=== PATIENT | female | born 1975 | race Hispanic/Latino ===

== ENCOUNTER 2017-10-12 13:25 | Observation (INO) | payer SELFPAY ==
[~2017-10-12] VITALS: Ht 157.5 cm; Wt 61.7 kg
[2017-10-12] MEDS: NALOXONE HCL 2MG/2 ML SYRINGE IV PRN ×3 (13:30→14:00)
[2017-10-12] MEDS: FLUMAZENIL 0.5MG/ 5ML VIAL IV PRN ×4 (13:30→13:55)
[2017-10-12 14:24] LABS: ACETAMINOPHEN < 3 ug/mL (10-30); SALICYLATE < 5.0 mg/dL (0-30)
[2017-10-12 14:51] LABS: PREGNANCY TEST, URINE NEGATIVE (NEGATIVE)
[2017-10-12 14:52] LABS: CLARITY,URINE SL CLOUDY (CLEAR); COLOR,URINE YELLOW (YELLOW); KETONES,URINE 1+ (NEGATIVE); LEUKOCYTE ESTERASE ,URINE NEGATIVE (NEGATIVE); NITRITE,URINE NEGATIVE (NEGATIVE); PROTEIN,URINE DIPSTICK NEGATIVE (NEGATIVE)
[2017-10-12 14:53] LABS: AMPHETAMINES SCREEN,URINE NEGATIVE (NEGATIVE); BENZODIAZEPINES SCREEN,URINE POSITIVE (NEGATIVE); BILIRUBIN,URINE NEGATIVE (NEGATIVE); PHENCYCLIDINE SCREEN,URINE NEGATIVE (NEGATIVE); URINE UROBILINOGEN 0.2 mg/dL (0.2 - 1)
[2017-10-12] MEDS ORDERED: SODIUM CHLORIDE 0.9% 1000ML 1,000 ML IV SCH (15:00)
[2017-10-12 15:04] LABS: EPITHELIAL CELLS,URINE RARE /LPF
[2017-10-12 15:47] LABS: ABG HCO3 24 mmol/L (23-28); ABG PCO2 37 mmHg (41-51); ABG PH 7.42 (7.31-7.41); ABG PO2 159 mmHg (80-105)
[2017-10-12 15:47] LABS: BASOPHILS % 0.3 % (0.0-1.0); EOSINOPHILS % 0.3 % (0.0-6.0); HEMATOCRIT 37.8 % (34.2-44.1); HEMOGLOBIN 13.1 g/dL (12.0-16.0); LYMPHOCYTES # (AUTO) 1.4 (1.0-3.2); LYMPHOCYTES % 12.4 % (18.0-39.1); MEAN CORPUSCULAR HGB CONC 34.7 g/dL (31-35); MEAN CORPUSCULAR VOLUME 89.6 fL (81-99); MONOCYTES # (AUTO) 0.6 (0.2-0.8); MONOCYTES % 5.1 % (4.4-11.3); NEUTROPHILS # (AUTO) 9.4 (2.1-6.9); NEUTROPHILS % 81.6 % (38.7-80.0); PLATELET COUNT 255 x10e3/uL (140-360); RED BLOOD COUNT 4.22 x10e6/uL (3.6-5.1)
[2017-10-12 15:59] LABS: INR 1.03; PARTIAL THROMBOPLASTIN TIME 26.4 seconds (23.8-35.5); PROTHROMBIN TIME 12.7 seconds (11.9-14.5)
[2017-10-12] MEDS: SODIUM CHLORIDE 0.9% 1000ML 1,000 ML IV SCH ×2 (16:11→20:16)
[2017-10-12] MEDS ORDERED: ASPIRIN 81 MG CHEW TAB ONE (16:26)
[2017-10-12 17:45] VITALS: BP_SYST 163; BP_DIAS 78; BP_DIAS 82
[2017-10-12 18:16] VITALS: BP 163/82
[2017-10-12 18:45] VITALS: BP 129/99
[2017-10-12 18:50] VITALS: BP 135/84
[2017-10-12 19:35] VITALS: BP 142/92
[2017-10-13] MEDS ORDERED: ACETAMINOPHEN 325 MG TAB PO PRN (00:15)
[2017-10-13 00:26] VITALS: BP 122/69
[2017-10-13 04:00] VITALS: BP 153/85
[2017-10-13 07:23] VITALS: BP 121/64
[2017-10-13] MEDS: SODIUM CHLORIDE 0.9% 1000ML 1,000 ML IV SCH (07:32)
[2017-10-13 08:40] VITALS: BP 121/64
--- NOTE | 2017-10-14 13:00 | Discharge Summary ---
FINAL DIAGNOSES 1. Major depression. 2. Anxiety disorder. 3. Suicide attempt. SUMMARY: A 42-year-old female with depression. The patient is seeing a therapist outside psychologist. The patient underwent a session. She could not afford 9 sessions. Therefore, she stopped going. She took some old benzodiazepine pill and was lethargic when she came into the outpatient ER. The patient was sent here for evaluation. MAT team mobile assessment response team came out to see the patient. They saw the patient. Recommended MD for patient information for outside resources. Patient has no suicidal ideation at this time. That confirmed on conversation with the patient due to cancellation. Patient's close friend is also by her bedside. The patient is from her 9 months ago. He does have 2 grown children already. They are not living with the patient. The patient lives by herself. The patient denied any suicidal/homicidal ideation at this time. The patient has been cleared by the MAT team for discharge from a psychiatric standpoint. Medically, the patient is stable. Discussed with the patient at length. The patient is going home with her friend today. She will discharge home. She again had no intention of hurting herself anymore. She is stable. Patient was discharged home. Recommend the patient to follow up with the MAT team recommendation. She is going home with her friend as she needs friend's support. Job#: [id number]
== END 2017-10-13 12:08 | disposition home or self-care (01) ==
LOC: ER 13:25 → ERHOLD 16:11 → IMCU 16:43
PROVIDERS: ADMIT Internal Medicine; ATTEND Internal Medicine
DX: T42.4X2A Poisoning by benzodiazepines, intentional self-harm, initial encounter (principal); F32.9 Major depressive disorder, single episode, unspecified; F41.9 Anxiety disorder, unspecified
CPT/HCPCS: 36415; 80053; 80307; 80320; 80329 ×2; 81001; 81003; 81025; 82140; 82553; 82805; 83605; 84484; 85025; 85610; 85730; 93005; 99285; G0378 ×2; J2310; J7030 ×2; 36600